=== PATIENT | female | born 1940 ===

== ENCOUNTER 2018-08-20 14:36 | Inpatient (IN) | payer MEDICARE, MEDICAID ==
[~2018-08-20 14:36] MED LIST: Iopamidol 370 76% 100 ML VIAL ONE; Iopamidol 370 76% 50 ML VIAL FS ONE
[2018-08-20] MEDS ORDERED: Furosemide 40 MG/4 ML VIAL ONE (14:46)
[2018-08-20] MEDS ORDERED: Rocuronium Bromide 10 MG/ML (10ML VIAL) ONE (14:46)
[2018-08-20 14:52] LABS: #Basophils 0.1 thou/uL (0.0-0.2); #Lymphocytes 0.7 thou/uL (1.20-3.40); #Monocytes 0.6 thou/uL (0.11-0.59); #Neutrophils 11.6 thou/uL (1.40-6.50); %Basophils 0.4 % (0.0-1.0); %Eosinophils 0.2 % (0.0-10.0); %Monocytes 4.7 % (0.0-10.0); %Neutrophils 89.7 % (42.0-75.0); Hemoglobin 13.9 g/dL (12.0-16.0); Mean Corpuscular HGB CONC 32.2 g/dL (32.0-36.0); Mean Corpuscular Hemoglobin 31.1 pg (27.0-31.0); Mean Corpuscular Volume 96.7 fL (78.0-98.0); Mean Platelet Volume 9.7 fL (7.4-10.4); Platelet Count 191 thou/uL (130-400); RBC Distribution Width 11.8 % (11.5-14.5); Red Blood Cell (RBC) Count 4.45 mill/uL (4.20-5.40)
[2018-08-20 14:57] LABS: INR-International Normal Ratio 1.7; Prothrombin Time 19.8 SEC (12.0-14.7)
[2018-08-20 15:11] LABS: ALT (SGPT) 421 U/L (8-55); AST (SGOT) 422 U/L (5-34); Albumin 3.7 g/dL (3.4-4.8); Alkaline Phosphatase 55 U/L (40-150); Anion Gap 17 mmol/L (10-20); BUN (Urea Nitrogen) 33 mg/dL (9.8-20.1); Bilirubin, Total 1.8 mg/dL (0.2-1.2); Calc. Creatinine Clearance 0 mL/min (70-130); Carbon Dioxide 20 mmol/L (23-31); Chloride 105 mmol/L (98-107); Estimated GFR-MDRD 32; Globulin 3.5 g/dL (2.4-3.5); Glucose 180 mg/dL (83-110); Lipase 68 U/L (8-78); Potassium 5.2 mmol/L (3.5-5.1); Protein, Total 7.2 g/dL (6.0-8.3); Sodium 137 mmol/L (136-145)
[2018-08-20 15:13] LABS: PTT Greater than 250.0 SEC (22.9-36.1)
[2018-08-20 15:30] LABS: CKMB 6.5 ng/mL (0-6.6)
[2018-08-20] MEDS ORDERED: Metoprolol Tartrate 5 MG/5 ML VIAL ONE (15:40)
[2018-08-20] MEDS ORDERED: Adenosine 6 MG/2 ML VIAL ONE ×2 (15:44→15:56)
[2018-08-20] MEDS ORDERED: Fentanyl 100 MCG/2 ML VIAL ONE (15:56)
--- NOTE | 2018-08-20 15:57 | RAD ---
CHEST 1 VIEW: HISTORY: Pain. COMPARISON: None. FINDINGS: Portable semiupright chest demonstrates a left-sided transvenous pacemaker with lead position in the right atrium and right ventricle. The heart is enlarged. There is atherosclerosis of the aorta. Pu lmonary vessels are within normal limits. Costophrenic angles are clear. There appear to be bilater al lower lobe infiltrates. There is no pneumothorax or osseous abnormality. IMPRESSION: Bilateral lower lobe opacities likely due to infiltrate. Continued surveillance is recommended. POS: CELIO
[2018-08-20] MEDS ORDERED: Amiodarone 150 MG/3 ML VIAL ONE (16:00)
--- NOTE | 2018-08-20 16:03 | RAD ---
CHEST ONE VIEW: 08/20/18 HISTORY: Status post intubation. COMPARISON: 08/10/18 at 2:47 p.m. FINDINGS: Redemonstration of left sided transvenous pacemaker. Endotracheal tube appears to be in the right alejandra n stem bronchus. There is suggestion of a nasogastric tube with distal tip that appears to be in the gastric cardia. The side hole appears to be in the thoracic esophagus. There are persistent bilateral lower lobe opacities. No pneumothorax. IMPRESSION: 1. Nasogastric tube as above. Advancing the nasogastric is recommended. 2. Endotracheal tube with distal tip in the right main stem bronchus. Retraction of the endotrac heal tube by approximately 4 cm is recommended. Results of the study discussed with Dr. Kaminski 08/20/18 at 3:08 p.m. Code HEIDY POS: CELIO
[2018-08-20] MEDS ORDERED: Heparin 10,000 UNITS/1 ML VIAL ONE (16:48)
[2018-08-20] MEDS ORDERED: EPINEPHrine 1 MG/10 ML Abboject SYRINGE ONE (17:09)
[2018-08-20] MEDS ORDERED: Norepinephrine 4 MG/4 ML VIAL ONE ×2 (17:09→17:36)
[2018-08-20] MEDS: Sodium Chloride 0.9% 1,000 ML IV SCH ×2 (18:40→23:52)
[2018-08-20] MEDS ORDERED: fentaNYL Citrate/PF 2,000 MCG in Sodium Chloride 0.9% 60 ML IV SCH (18:42)
[2018-08-20] MEDS ORDERED: Sodium Chloride 0.9% 500 ML IV SCH ×2 (19:00→23:45)
[2018-08-20] MEDS ORDERED: Heparin 10,000 UNITS/1 ML VIAL 50,000 UNITS in Dextrose 5% in Water 1,000 ML FS SCH (19:00)
[2018-08-20] MEDS ORDERED: Norepinephrine 8 MG/0.9% NS 250 ML ONE (19:45)
[2018-08-20] MEDS ORDERED: Norepinephrine 8 MG/250 ML BAG IVPB PRN (19:47)
[2018-08-20 20:45] VITALS: BMI 28.8
[2018-08-20 20:48] VITALS: TEMP 96.4
--- NOTE | 2018-08-21 00:56 | HP ---
DATE OF CONSULTATION: CHIEF COMPLAINT: Acute ST-segment elevation UT. HISTORY OF PRESENT ILLNESS: Ms. Ny is a pleasant 78-year-old woman who has not been seen and evaluated by Cardiology in our area in the past. She was initially seen and evaluated in the emergency room. No family was available. She was appeared to report heart failure. She did have ST-segment elevation noted laterally suggesting acute UT. History was vague. Review of old medical records suggested a previous history of pacemaker implantation in addition to hypertension, hyperlipidemia. REVIEW OF SYSTEMS: Unobtainable. MEDICATIONS: 1. Coreg 6.25 b.i.d. 2. Aspirin 81 q.a.m. 3. Plavix 75 daily. 4. Lisinopril 5 mg daily. PHYSICAL EXAMINATION: VITAL SIGNS: Blood pressure 140/70, pulse 140, respirations 20. GENERAL: Difficult to assess orientation given her acute shortness of breath. NEUROLOGIC: The patient is alert and oriented x3 with no focal neurologic deficits. HEENT: Sclerae without icterus. Mouth has moist mucous membranes with normal pallor. NECK: No JVD. Carotid upstroke brisk. No bruits bilaterally. LUNGS: Crackles noted bilaterally. BACK: No scoliosis or kyphosis. CARDIAC: Regular rate and rhythm with normal S1 and S2. No S3 or S4 noted. No significant rubs, murmurs, thrills, or gallops noted throughout the precordium. PMI is not displaced. There is no parasternal heave. ABDOMEN: Soft, nontender, nondistended. No peritoneal signs present. No hepatosplenomegaly. No abnormal striae. EXTREMITIES: 2+ femoral and 2+ dorsalis pedis pulses. No cyanosis, clubbing, or edema. SKIN: No gross abnormalities. PERTINENT LABORATORY DATA: Pending. IMPRESSION: 1. Acute myocardial infarction. 2. Acute systolic heart failure. 3. Pacemaker implantation. RECOMMENDATIONS: History is currently limited. Next of kin was called and I did leave a message. No answer noted. Decided to proceed with urgent coronary angiography plus PCI. I discussed treatment in full detail with Ms. Ny. Risks include, but not limited to consent. All questions were answered. We will proceed urgently. Job ID: [id number]
[2018-08-21 05:49] LABS: Band 22 % (5-11); Hemoglobin 11.3 g/dL (12.0-16.0); Lymphocytes 6 % (21-51); MDiff Complete? YES; Mean Corpuscular HGB CONC 32.8 g/dL (32.0-36.0); Mean Corpuscular Volume 97.4 fL (78.0-98.0); Mean Platelet Volume 10.2 fL (7.4-10.4); Monocytes 5 % (0-10); Neutrophil 67 % (42-75); Nucleated RBC 1 % (0); Platelet Count 122 thou/uL (130-400); Platelet Morphology Comment Appears Adequate; RBC Distribution Width 11.8 % (11.5-14.5); Red Blood Cell (RBC) Count 3.53 mill/uL (4.20-5.40); White Blood Cell (WBC) Count 11.7 thou/uL (4.8-10.8)
[2018-08-21] MEDS: Sodium Chloride 0.9% 1,000 ML IV SCH (05:54)
[2018-08-21] MEDS ORDERED: Dextrose 50% Abboject 50 ML SYRINGE ONE (06:00)
[2018-08-21] MEDS ORDERED: Dextrose 50% Abboject 50 ML SYRINGE IVP PRN (06:11)
[2018-08-21] MEDS ORDERED: Dextrose 5% in Water 1,000 ML IV PRN (06:11)
[2018-08-21 06:45] LABS: Actual Bicarbonate (HCO3a) 8.6 mEq/L (22-28); CO2 Tension 26.4 mmHg (35.0-45.0); Calcium, Ionized 0.96 mmol/L (1.12-1.30); Carboxyhemoglobin (COHb) 0.6 gm% (0.0-3.0); Hemoglobin (Hb) 11.1 g/dL (12.0-16.0); O2 Tension (PaO2) 95.1 mmHg (> 70.0); Potassium - ABG Lab 5.14 mmol/L (3.70-5.30)
[2018-08-21 06:51] LABS: ALT (SGPT) 4772 U/L (8-55)
[2018-08-21 06:56] LABS: Puncture Site ALINE; pH, Arterial 7.13 (7.35-7.45)
[2018-08-21 06:59] LABS: AST (SGOT) Greater than 3500 U/L (5-34); Albumin 2.8 g/dL (3.4-4.8); Alkaline Phosphatase 66 U/L (40-150); Anion Gap 28 mmol/L (10-20); BUN (Urea Nitrogen) 35 mg/dL (9.8-20.1); Bilirubin, Total 3.3 mg/dL (0.2-1.2); Calc. Creatinine Clearance 29 mL/min (70-130); Calcium 7.5 mg/dL (7.8-10.44); Carbon Dioxide 8 mmol/L (23-31); Chloride 110 mmol/L (98-107); Estimated GFR-MDRD 25; Globulin 2.6 g/dL (2.4-3.5); Glucose 16 mg/dL (83-110); Potassium 5.5 mmol/L (3.5-5.1); Protein, Total 5.4 g/dL (6.0-8.3); Sodium 140 mmol/L (136-145)
--- NOTE | 2018-08-21 07:56 | OP ---
DATE OF PROCEDURE: ADDENDUM: Ms. Ny was brought urgently for coronary angiography. She underwent coronary angiography and was found to have severe multivessel disease. Her LV-gram did suggest a markedly decreased LVEF estimated 10% to 15% and appeared to be consistent with a takotsubo cardiomyopathy. LVEDP at that time was also 16 to 18 mmHg. The patient was found to be in atrial flutter after given adenosine. The pacemaker was also interrogated, confirming the above. Given elevated troponin and the fact that she likely decompensated from low LVEF, severe multivessel disease and stressors including tachycardia, we decided to proceed with synchronized cardioversion. Synchronized cardioversion was performed successfully x2 at 150 joules. She was given IV amiodarone. After IV amiodarone was given, the patient did develop hypotension. This was felt to be consistent with cardiogenic shock. After given fluids, she did not respond. Initially, the idea was to proceed with intra-aortic balloon pump placement. She had significant tortuosity of the aorta and not felt to be an appropriate candidate for intra-aortic balloon pump. Impella was then placed successfully. A left arterial line was also placed successfully under ultrasound guidance. A triple-lumen central line was also placed successfully under ultrasound guidance. I did discuss with the son on her progress. I did state her prognosis was poor. She was placed on a ventilator in addition to intra-aortic balloon pump placement. I was unsure if she would survive through the night. He understood. He also states she was DNR while in the senior care. We will honor his wishes. We will not proceed with cardioversion or compressions or continued pressors. I have asked Dr. Zacarias to help in consultation. Job ID: [id number]
--- NOTE | 2018-08-21 07:56 | OP ---
DATE OF PROCEDURE: 08/20/2018 PREPROCEDURE DIAGNOSES: Cardiogenic shock, non ST-segment elevation myocardial infarction, acute systolic congestive heart failure, unstable angina. POSTPROCEDURE DIAGNOSES: Cardiogenic shock, non ST-segment elevation myocardial infarction, acute systolic congestive heart failure, unstable angina. PROCEDURE: Successful CP Impella placement. DETAILS OF PROCEDURE: The 6-Paraguayan sheath was flushed and removed, and replaced with a dilator including an 8-[place]aguayan, 10-Paraguayan, 12-Paraguayan, and 14-Paraguayan sheath. The sheath was then placed successfully. The angled pigtail was then placed into the LV successfully. The Impella was then placed for cardiopulmonary assistance and inserted successfully into the left ventricle. Initially, it was placed at the P7 with a cardiac output of 2.6 to 3.0. There appeared to be a very narrow pulse pressure. There was confirmation of a pulse by nursing staff in the carotid region, although it was faint. The patient did have a pacemaker. The patient never lost rhythm. Given the unknown on perfusion given the faint pulse, it was decided to proceed with CPR briefly. After CPR, the patient did regain pulse. CPR ensued for less than 1 minute. The patient was placed on IV norepinephrine. IMPRESSION: Successful Impella CP placement. Job ID: [id number]
[2018-08-21] MEDS ORDERED: Prevnar 13-Val Conj/PF 0.5 ML SYRINGE IM ONE (09:00)
[2018-08-21] MEDS ORDERED: Lorazepam 2 MG/ML VIAL SLOW IVP PRN (10:07)
--- NOTE | 2018-08-21 10:28 | PRG ---
DATE OF SERVICE: 08/21/2018 SERVICE: Pulmonary Medicine. INTERVAL HISTORY: The patient is doing okay from a respiratory standpoint. She cannot provide any additional elements of the history. Mentation is still suppressed. She is not interacting with her surroundings. She is not requiring any sedation at this point. Otherwise, there has been no interval change to her condition. She still remains on a little bit of Levophed. Impella pump is in place. Cardiac output has been maintained. PHYSICAL EXAMINATION: VITAL SIGNS: Afebrile, pulse 85, blood pressure 102/61, respirations 25, saturation 98% on 60% FiO2 and a PEEP of 5. GENERAL: The patient is intubated. She is under no influence of sedation. HEENT: Normocephalic and atraumatic. Sclerae white. Conjunctivae pink. Oral mucosa is moist without lesions. LUNGS: Decent air entry. There are crackles and rhonchi present. No prolonged expiratory phase or wheezing is appreciated. HEART: Normal rate and regular. ABDOMEN: Soft, nontender, and nondistended. Bowel sounds are positive. MUSCULOSKELETAL: No cyanosis or clubbing. There is no pitting in the bilateral lower extremities. NEUROLOGIC: Grossly nonfocal. LABORATORY DATA: Sodium 142, potassium 5.5, bicarb 8, creatinine 1.98, BUN 35, AST and ALT are greater than 3000. Alkaline phosphatase falls within the normal limits. Troponin is increased to 19.1. Urinalysis is unremarkable. ASSESSMENT: 1. Acute hypoxic respiratory failure. 2. Cardiogenic shock. 3. Acute on chronic systolic heart failure. 4. Acute kidney injury. 5. Shock liver. 6. Multisystem organ dysfunction. 7. Metabolic encephalopathy. DISCUSSION AND PLAN: The patient's family has requested that we transition her over to comfort care only. Pulmonary/Critical Care will continue to follow along while she remains in this location. That being said, once the family is ready for this transition, we will discontinue the Impella, and withdrawal the Levophed, and extubate the patient to comfort only. is expected during this hospital stay. Critical care time: 390 minutes. Job ID: [id number] MTDD
[2018-08-21 10:32] VITALS: BP 95/59
--- NOTE | 2018-08-21 14:51 | CON ---
DATE OF CONSULTATION: 08/20/2018 SERVICE: Pulmonary Medicine. REASON FOR CONSULTATION: ICU patient. HISTORY OF PRESENT ILLNESS: The patient is a 78-year-old white female with past medical history significant for extensive coronary artery disease. Apparently, she has chronic systolic heart failure and had an AICD placed over 8 years ago. Since it has been placed, it had never once been interrogated. Roughly 6 years ago, she transitioned from her previous place of living to [place]. She did not establish care with any local physicians. She cannot provide me with any additional elements of the history at this point. All we can say is that she came to the hospital because of findings consistent with possible heart failure. There are ST-segment changes in the lateral leads suggesting acute myocardial infarction. It was decided to intubate the patient and put her on mechanical ventilation. 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 At that location, she was discovered to have very severe, diffuse 3-vessel disease. She actually lost pulse for a brief period of time associated with tachyarrhythmia. She was cardioverted. A brief episode of chest compressions was performed and she returned to normal circulation quickly. After all of these events transpired, the patient's family has suggested that the patient would not want aggressive care moving forward. They suggested that she was a firm DNR/DNI. As such, they asked that we settle her into the ICU overnight and they are going to be planning on transition over to comfort care in the morning. REVIEW OF SYSTEMS: Cannot be obtained. PAST MEDICAL HISTORY: Unknown. PAST SURGICAL HISTORY: Unknown. FAMILY HISTORY: Noncontributory. SOCIAL HISTORY: The family reports no abuse of alcohol, tobacco, or illicit drug use. ALLERGIES: NO INFORMATION AVAILABLE. MEDICATIONS: Inpatient medications were reviewed. No specific updates were made at this time. PHYSICAL EXAMINATION: VITAL SIGNS: Afebrile, pulse 85, blood pressure 102/61, respirations 25, saturation 98% on 60% FiO2, and a PEEP of 5. GENERAL: The patient is intubated. She is under the influence of no sedation. HEENT: Normocephalic and atraumatic. Sclerae white. Conjunctivae pink. Oral mucosa is moist without lesions. LUNGS: Decent air entry. Rhonchi and crackles are both present. There is no prolonged expiratory phase or wheezing appreciated. HEART: Normal rate. Regular. ABDOMEN: Soft, nontender, and nondistended. Bowel sounds are positive. MUSCULOSKELETAL: No cyanosis or clubbing. There is trace 1+ pitting in the bilateral lower extremities. NEUROLOGIC: She does not withdraw from noxious stimuli in the bilateral upper or lower extremities. Pupils were previously pinpoint, but very minimally reactive. She over breathe the ventilator just fine. She did not demonstrate any good gag, or cough with deep suctioning. LABORATORY DATA: WBC 13.0, hemoglobin 13.9, platelets 191,000. INR 1.7. Potassium 5.2. Creatinine 1.57, which is above baseline, AST and ALT are elevated. Troponin 19. Liver function studies are otherwise unremarkable. Lipase and pre-albumin are unremarkable. Urinalysis is negative except for small amounts of red blood cells and white blood cells. There is moderate amount of blood there. IMAGING STUDIES: Chest x-ray demonstrates endotracheal tube is roughly 2 cm above the level of the bhavik. There is an enteric catheter coursing midline below the level of the diaphragm. AICD is in place. There is a widened carinal angle suggestive of left atrial enlargement. Small rim of atelectasis is present in the right base. There is likely bilateral pleural effusions, which are small. Cephalization is also noted. ASSESSMENT: 1. Acute hypoxic respiratory failure. 2. Acute on chronic systolic heart failure. 3. ST-elevation myocardial infarction. 4. Acute kidney injury. 5. Shock liver. 6. Multisystem organ dysfunction. 7. Metabolic encephalopathy. 8. Metabolic acidosis, severe. DISCUSSION AND PLAN: We will support the patient overnight. In the morning, we have future conversations with the patient's family. If they still would like to proceed with compassionate care, we will transition over the patient to comfort care only and allow her to . Pulmonary/Critical Care will continue to follow in this location. CRITICAL CARE TIME: 30 minutes. Job ID: [id number]
--- NOTE | 2018-08-21 18:04 | DIS ---
DATE OF ADMISSION: 08/20/2018 DATE OF DISCHARGE: 08/21/2018 FINAL SUMMARY: HOSPITAL COURSE: Ms. Ny is a 78-year-old woman, who recently presented with acute onset heart failure. EKG did suggest ST-segment elevation. She was tachycardic. She was intubated while in the emergency room prior to proceeding with coronary angiography. She underwent coronary angiography and was found to have severe multivessel disease, not approachable percutaneously or per bypass surgery. She also had a marked cardiomyopathy and LVEF did suggest findings consistent with takotsubo cardiomyopathy versus ischemic cardiomyopathy. The patient then underwent adenosine infusion for suspicion of atrial flutter. This was confirmed. She was cardioverted successfully. She then developed cardiogenic shock. It was decided to proceed with the Impella placement. This was successfully placed. The patient was then transferred to the ICU. While in the ICU, the patient's status worsened. Her urine output decreased. She did require pressor support in addition to Impella. She also developed a cold right lower extremity likely from the 14-Croatian sheath. She also was markedly acidotic in the following morning. I have updated the family and they opted for comfort care only and wanted to withdraw support. The Impella was then removed. She was extubated and passed at 1114 hours. Autopsy was not sought by the family. Job ID: [id number]
--- NOTE | 2018-08-22 07:39 | OP ---
DATE OF PROCEDURE: 08/21/2018 PREPROCEDURE DIAGNOSIS: Impella, LVAD. POSTPROCEDURE DIAGNOSIS: Removal of Impella. Family has opted to proceed with comfort care only. They would like to withdraw support. The Impella was then decreased from P7 to P5 to P3 down to P2. The Impella was then withdrawn into the aorta and decrease to P0. The Impella was then unplugged and successfully removed. IMPRESSION: Successful removal of the Impella. Job ID: [id number]
--- NOTE | 2018-08-22 20:55 | EKG ---
Test Reason : Blood Pressure : / mmHG Vent. Rate : 075 BPM Atrial Rate : 075 BPM P-R Int : 256 ms QRS Dur : 094 ms QT Int : 468 ms P-R-T Axes : 076 028 133 degrees QTc Int : 522 ms Sinus rhythm with 1st degree A-V block Low voltage QRS Prolonged QT Abnormal ECG No previous ECGs available Confirmed by Prashanth GALE ([id number]) on 08/22/2018 8:54:48 PM Referred By: LIANET Confirmed By:Prashanth GALE
== END 2018-08-21 11:17 | disposition expired | DRG 215 ==
LOC: ERS 14:36 → CCL 15:10 → CCU 15:33
PROVIDERS: ADMIT Internal Medicine Cardiovascular Disease; ATTEND Internal Medicine Cardiovascular Disease
PROC: 02HA3RZ Insertion of Short-term External Heart Assist System into Heart, Percutaneous Approach (ICD-10-PCS; principal; 2018-08-20)
PROC: 5A0221D Assistance with Cardiac Output using Impeller Pump, Continuous (ICD-10-PCS; 2018-08-20)
PROC: 4A023N7 Measurement of Cardiac Sampling and Pressure, Left Heart, Percutaneous Approach (ICD-10-PCS; 2018-08-20)
PROC: B2111ZZ Fluoroscopy of Multiple Coronary Arteries using Low Osmolar Contrast (ICD-10-PCS; 2018-08-20)
PROC: B2151ZZ Fluoroscopy of Left Heart using Low Osmolar Contrast (ICD-10-PCS; 2018-08-20)
PROC: 5A12012 Performance of Cardiac Output, Single, Manual (ICD-10-PCS; 2018-08-20)
PROC: 5A2204Z Restoration of Cardiac Rhythm, Single (ICD-10-PCS; 2018-08-20)
PROC: 5A1935Z Respiratory Ventilation, Less than 24 Consecutive Hours (ICD-10-PCS; 2018-08-20)
PROC: 0BH17EZ Insertion of Endotracheal Airway into Trachea, Via Natural or Artificial Opening (ICD-10-PCS; 2018-08-20)
PROC: 02PA3RZ Removal of Short-term External Heart Assist System from Heart, Percutaneous Approach (ICD-10-PCS; 2018-08-21)
DX: I21.29 ST elevation (STEMI) myocardial infarction involving other sites (principal); I50.23 Acute on chronic systolic (congestive) heart failure; J96.01 Acute respiratory failure with hypoxia; K72.00 Acute and subacute hepatic failure without coma; G93.41 Metabolic encephalopathy; N17.9 Acute kidney failure, unspecified; E87.2 Acidosis; I42.9 Cardiomyopathy, unspecified; I48.92 Unspecified atrial flutter; I25.110 Atherosclerotic heart disease of native coronary artery with unstable angina pectoris; Z51.5 Encounter for palliative care; I11.0 Hypertensive heart disease with heart failure; E78.5 Hyperlipidemia, unspecified; Z66 Do not resuscitate; R57.0 Cardiogenic shock; Z79.82 Long term (current) use of aspirin; Z79.02 Long term (current) use of antithrombotics/antiplatelets; Z95.810 Presence of automatic (implantable) cardiac defibrillator
CPT/HCPCS: 31500; 33975; 36415; 36416; 51702; 71045; 76942; 80053; 82553; 82805; 83690; 84484; 85025; 85347; 85610; 85730; 90471; 90670; 92960; 93005; 93010; 93306; 93458; 94002; 94003; 94760; 96374; C1769; C1887; G0009; J0153; J0171; J0282; J1644; J1940; J3010; J7050; J7070